=== PATIENT | female | born 1955 | race Native Hawaiian/Other Pacific Islander ===

== ENCOUNTER 2017-05-02 12:49 | Outpatient (CLI) | payer OTHER | END 2017-05-02 19:06 | disposition home or self-care (01) | LOC: RESP 12:49 | DX: I10 Essential (primary) hypertension (principal); R06.02 Shortness of breath | CPT/HCPCS: 93306 ==

== ENCOUNTER 2020-01-21 09:21 | Outpatient (CLI) | payer OTHER | END 2020-01-21 19:29 | disposition home or self-care (01) | LOC: US 09:21 | DX: R94.5 Abnormal results of liver function studies (principal); Z91.81 History of falling ==

== ENCOUNTER 2020-04-20 12:28 | Outpatient (CLI) | payer OTHER | END 2020-04-20 19:12 | disposition home or self-care (01) | LOC: RAD 12:28 | DX: M12.50 Traumatic arthropathy, unspecified site (principal) ==

== ENCOUNTER 2020-12-18 13:48 | Emergency (ER) | payer OTHER ==
[~2020-12-18] VITALS: Ht 170.2 cm; Wt 74.8 kg
[2020-12-18 15:10] VITALS: BP 162/85; TEMP 98.4
== END 2020-12-18 15:10 | disposition home or self-care (01) ==
LOC: ED 13:48
DX: J20.9 Acute bronchitis, unspecified (principal); F17.210 Nicotine dependence, cigarettes, uncomplicated
CPT/HCPCS: 87651; 99282; 99283